=== PATIENT | female | born 1980 | race Caucasian/White ===

== ENCOUNTER 2017-09-12 12:26 | Emergency (ER) | payer BC ==
[2017-09-12] MEDS ORDERED: Sodium Chloride 0.9% 10 ML Syringe FLUSH PRN (12:44)
[2017-09-12] MEDS ORDERED: Aspirin 81 MG Tab.Chew PO ONE (12:44)
--- NOTE | 2017-09-12 14:44 | EDM.PDOC ---
ED HPI GENERAL MEDICAL PROBLEM - General Chief Complaint: Cardiovascular Problem Stated Complaint: CHEST PAIN Time Seen by Provider: 09/12/17 12:37 Source of Information: Reports: Patient History Limitations: Reports: No Limitations - History of Present Illness INITIAL COMMENTS - FREE TEXT/NARRATIVE: The patient presents with chest pain. This started today when she was at work. It felt like her heart was pounding and that it was racing. Her fit bit went off. She also had shortness of breath, and nausea. The pain is better now. This has been a chronic problem. She has been seen here and by her provider Dr Quezada. He has been unable to find a cause at this time. The patient has made some calls and she has an appointment down at the [facility] October 31. She just needs a referral by her doctor. She has no fever, chills, abdominal pain, numbness or weakness. Onset: Sudden Duration: Hour(s): Location: Reports: Chest Quality: Reports: Sharp Severity: Moderate Improves with: Reports: None Worsens with: Reports: None Associated Symptoms: Reports: Chest Pain, Shortness of Breath. Denies: Cough, Fever/Chills, Headaches, Nausea/Vomiting - Related Data Allergies Allergy/AdvReac Type Severity Reaction Status Date / Time No Known Allergies Allergy Verified 09/12/17 12:39 Home Meds: Home Meds Nitroglycerin [Nitrostat] 1 container SL Q5M #1 tab.sl 05/29/16 [Rx] Multivitamin [Multivitamins] 1 tab PO DAILY 05/30/16 [History] [place]-3 Fatty Acids/DHA/EPA [[facility] Dha Cap] 1,000 mg PO DAILY 08/11 [History] Fluticasone/Vilanterol [Breo Ellipta 100-25 MCG Inhalation Kit] 1 inh INH DAILY 09/12/17 [History] Levothyroxine 25 mcg PO DAILY 09/12/17 [History] Past Medical History - Past Health History Medical/Surgical History: Denies Medical/Surgical History Gastrointestinal History: Reports: Other (See Below) Other Gastrointestinal History: constipation 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: - Past Surgical History HEENT Surgical History: Reports: Cataract Surgery Female Surgical History: Reports: Section Social & Family History - Family History Cardiac: Reports: [place] Neurological: Reports: CVA - Tobacco Use Smoking Status *Q: Never Smoker Second Hand Smoke Exposure: No - Caffeine Use Caffeine Use: Reports: Tea - Recreational Drug Use Recreational Drug Use: No ED ROS GENERAL - Review of Systems Review Of Systems: See Below Constitutional: Reports: No Symptoms HEENT: Reports: No Symptoms Respiratory: Reports: Shortness of Breath Cardiovascular: Reports: Chest Pain Endocrine: Reports: No Symptoms GI/Abdominal: Reports: No Symptoms : Reports: No Symptoms Musculoskeletal: Reports: No Symptoms ED EXAM, GENERAL - Physical Exam Exam: See Below Exam Limited By: No Limitations General Appearance: Alert, No Apparent Distress Ears: Normal External Exam Nose: Normal Inspection Head: Atraumatic, Normocephalic Neck: Normal Inspection Respiratory/Chest: No Respiratory Distress, Lungs Clear, Normal Breath Sounds Cardiovascular: Regular Rate, Rhythm, No Edema, No Murmur GI/Abdominal: Soft, Non-Tender, No Organomegaly, No Mass Back Exam: Normal Inspection Extremities: Normal Inspection EKG INTERPRETATION EKG Date: 09/12/17 Time: 12:53 Rhythm: NSR Rate (Beats/Min): 70 Floweree: Normal P-Wave: Present QRS: Normal ST-T: Normal QT: Normal Course - Vital Signs Last Recorded V/S: Last Vital Signs Temp 97.9 F 09/12/17 12:37 Pulse 87 09/12/17 12:37 Resp 20 09/12/17 12:37 BP 159/98 H 09/12/17 12:37 Pulse Ox 100 09/12/17 12:37 - Orders/Labs/Meds Orders: Active Orders 24 hr Category Date Time Status Cardiac Monitoring [RC] . DIRECTED Care 09/12/17 12:44 Active EKG Documentation Completion [RC] STAT Care 09/12/17 12:46 Active Peripheral IV Care [RC] . DIRECTED Care 09/12/17 12:46 Active Chest 1V Frontal [CR] Stat Exams 09/12/17 12:46 Taken Sodium Chloride 0.9% [Saline Flush] Med 09/12/17 12:44 Active 10 ml FLUSH ASDIRECTED PRN Peripheral IV Insertion Adult [OM.PC] Stat Oth 09/12/17 12:44 Ordered Medication Orders Sodium Chloride (Saline Flush) 10 ml FLUSH ASDIRECTED PRN PRN Reason: Keep Vein Open Last Admin: 09/12/17 13:00 Dose: 10 ml Labs: Laboratory Tests 09/12/17 09/12/17 09/12/17 Range/Units 13:00 13:00 13:00 WBC 9.11 (3.98-10.04) K/mm3 RBC 4.66 (3.98-5.22) M/mm3 Hgb 14.6 (11.2-15.7) gm/L Hct 42.1 (34.1-44.9) % MCV 90.3 (79.4-94.8) fl MCH 31.3 (25.6-32.2) pg MCHC 34.7 (32.2-35.5) g/dl RDW Std Deviation 38.8 (36.4-46.3) fL Plt Count 292 (182-369) K/mm3 MPV 9.5 (9.4-12.3) fl Neut % (Auto) 45.1 (34.0-71.1) % Lymph % (Auto) 43.4 (19.3-51.7) % [place] % (Auto) 8.9 (4.7-12.5) % Eos % (Auto) 2.1 (0.7-5.8) Baso % (Auto) 0.3 (0.1-1.2) % Neut # (Auto) 4.11 (1.56-6.13) K/mm3 Lymph # (Auto) 3.95 H (1.18-3.74) K/mm3 [place] # (Auto) 0.81 H (0.24-0.36) K/mm3 Eos # (Auto) 0.19 (0.04-0.36) K/mm3 Baso # (Auto) 0.03 (0.01-0.08) K/mm3 D-Dimer, Quantitative 0.37 (0.19-0.50) mg/L Sodium 137 (136-145) mEq/L Potassium 3.7 (3.5-5.1) mEq/L Chloride 102 (98-107) mEq/L Carbon Dioxide 24 (21-32) mEq/L Anion Gap 14.7 (5-15) BUN 19 H (7-18) mg/dL Creatinine 0.9 (0.55-1.02) mg/dL Est Cr Clr Drug Dosing 72.47 mL/min Estimated GFR (MDRD) > 60 (>60) mL/min BUN/Creatinine Ratio 21.1 H (14-18) Glucose 98 (74-106) mg/dL Calcium 9.8 (8.5-10.1) mg/dL Total Bilirubin 0.5 (0.2-1.0) mg/dL AST 26 (15-37) U/L ALT 47 (14-59) U/L Alkaline Phosphatase 71 (46-116) U/L Troponin I < 0.017 (0.00-0.056) ng/mL Total Protein 7.6 (6.4-8.2) g/dl Albumin 4.1 (3.4-5.0) g/dl Globulin 3.5 gm/dL Albumin/Globulin Ratio 1.2 (1-2) Meds: Medications Generic Name Dose Route Start Last Admin Trade Name Freq PRN Reason Stop Dose Admin Sodium Chloride 10 ml 09/12/17 12:44 09/12/17 13:00 Saline Flush FLUSH 10 ml ASDIRECTED PRN Administration Keep Vein Open Discontinued Medications Generic Name Dose Route Start Last Admin Trade Name Freq PRN Reason Stop Dose Admin Aspirin 324 mg 09/12/17 12:44 09/12/17 13:02 Aspirin PO 09/12/17 12:45 324 mg ONETIME ONE Administration - Re-Assessments/Exams Free Text/Narrative Re-Assessment/Exam: 09/12/17 14:45 I ordered an IV saline lock, aspirin, EKG, CXR and labs. Her EKG shows a NSR with no acute changes. Her CXR looks good. Her CBC and CMP look good. Her troponin and D-dimer are negative. I will have her stop drinking tea until her appointment. She only drinks 1 to 2 cups per day. Departure - Departure Time of Disposition: 14:50 Disposition: Home, Self-Care 01 Condition: Good Clinical Impression: Palpitations, Atypical chest pain Referrals: Jonathon Mary MD [Primary Care Provider] - Additional Instructions: Keep track of when the chest pain occurs and what you are doing at the times. Try to avoid any stimulants like tea, coffee and soda. Please return if you are worse. - My Orders Last 24 Hours: My Active Orders 09/12/17 12:44 Cardiac Monitoring [RC] . DIRECTED Sodium Chloride 0.9% [Saline Flush] 10 ml FLUSH ASDIRECTED PRN Peripheral IV Insertion Adult [OM.PC] Stat 09/12/17 12:46 EKG Documentation Completion [RC] STAT Peripheral IV Care [RC] . DIRECTED Chest 1V Frontal [CR] Stat - Assessment/Plan Last 24 Hours: My Active Orders 09/12/17 12:44 Cardiac Monitoring [RC] . DIRECTED Sodium Chloride 0.9% [Saline Flush] 10 ml FLUSH ASDIRECTED PRN Peripheral IV Insertion Adult [OM.PC] Stat 09/12/17 12:46 EKG Documentation Completion [RC] STAT Peripheral IV Care [RC] . DIRECTED Chest 1V Frontal [CR] Stat
--- NOTE | 2017-09-12 14:49 | CR ---
Chest: Portable view of the chest was obtained. Comparison: Prior chest x-ray of 05/29/16. Heart size and mediastinum are normal. Lungs are clear. Bony structures are grossly intact. Impression: 1. Nothing acute is seen on portable chest x-ray. Diagnostic code #1
[2017-09-12 15:15] VITALS: BP 127/86
== END 2017-09-12 15:10 | disposition home or self-care (01) ==
LOC: JD.ED 12:26
DX: R07.89 Other chest pain (principal); R00.2 Palpitations
CPT/HCPCS: 36415; 71045; 80053; 84484; 85025; 85379; 93005; 99285; A9270; J7050; 93010; 99284-25

== ENCOUNTER → 2020-04-02 | Day surgery (SDC) | payer BC ==
[~2020-04-02] MED LIST: Albuterol 6.7 GM Inhaler INH ONE; Dexamethasone 4 MG/ML 5 ML MDV ONE; HYDROmorphone 0.5 MG/0.5 ML Syringe IVPUSH PRN; Ketorolac 30 MG/ML SDV ONE; Lidocaine 1% 4 ML ONE; Lidocaine 1%/Sod Bicarbonate in NS 8.4% 1 ML Syringe IDERM PRN; Morphine 10 MG/ML SDV ONE; Ondansetron 4 MG/2 ML SDV IVPUSH PRN; Ondansetron 4 MG/2 ML SDV ONE; Propofol 200 MG/20 ML SDV ONE; Rocuronium 50 MG/5 ML Vial ONE; Sodium Chloride 0.9% 10 ML Syringe FLUSH PRN; ceFAZolin 1 GM Vial ONE; fentaNYL 100 MCG/2 ML SDV IVPUSH PRN; fentaNYL 100 MCG/2 ML SDV ONE
[2020-04-02] MEDS: Lactated Ringers 1,000 ML IV SCH ×2 (09:05→11:34)
--- NOTE | 2020-04-02 12:17 | PCM.PREANE ---
Preanesthetic Assessment - Procedure Proposed Procedure: [facility] - Anesthesia/Transfusion/Family Hx Anesthesia History: Prior Anesthesia Without Reaction Transfusion History: No Prior Transfusion(s) Additional History: No previous difficulties with anesthesia or with intubation per patient - Review of Systems General: No Symptoms Pulmonary: No Symptoms Cardiovascular: No Symptoms Gastrointestinal: No Symptoms Neurological: No Symptoms Other: Reports: None - Physical Assessment NPO Status Date: 04/02/20 (greater than 8 hours) Vital Signs: Last Vital Signs Temp 36.7 C 04/02/20 09:00 Pulse 68 04/02/20 09:00 Resp 16 04/02/20 09:00 BP 128/85 04/02/20 09:00 Pulse Ox 96 04/02/20 09:00 Height: 5 ft 4 in Weight: 95.254 kg ASA Class: 2 Mental Status: Alert & Oriented x3 Airway Class: Mallampati = 3 Dentition: Reports: Normal Dentition Thyro-Mental Finger Breadths: 3 Mouth Opening Finger Breadths: 3 ROM/Head Extension: Full Lungs: Clear to Auscultation, Normal Respiratory Effort Cardiovascular: Regular Rate, Regular Rhythm - Lab Values: Laboratory Last Values Urine HCG, Qual Negative (NEGATIVE) 04/02/20 08:50 Blood Type O NEGATIVE 04/02/20 09:15 Gel Antibody Screen Negative 04/02/20 09:15 - Allergies Allergies/Adverse Reactions: Allergies Allergy/AdvReac Type Severity Reaction Status Date / Time No Known Allergies Allergy Verified 04/02/20 09:47 - Anesthesia Plan Pre-Op Medication Ordered: None - Acknowledgements Anesthesia Type Planned: General Anesthesia Pt an Appropriate Candidate for the Planned Anesthesia: Yes Alternatives and Risks of Anesthesia Discussed w Pt/Guardian: Yes Pt/Guardian Understands and Agrees with Anesthesia Plan: Yes PreAnesthesia Questionnaire - Past Health History Medical/Surgical History: Denies Medical/Surgical History HEENT History: Reports: Impaired Vision Cardiovascular History: Reports: None Respiratory History: Reports: Asthma Gastrointestinal History: Reports: None, Other (See Below) Other Gastrointestinal History: constipation Genitourinary History: Reports: None 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: , 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 (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 Below) Other OB/BYN History: abnormal uterine and vaginal bleeding Musculoskeletal History: Reports: None Neurological History: Reports: None Psychiatric History: Reports: Anxiety Endocrine/Metabolic History: Reports: Hypothyroidism Hematologic History: Reports: None Immunologic History: Reports: None Oncologic (Cancer) History: Reports: None Dermatologic History: Reports: None - Infectious Disease History Infectious Disease History: Reports: None - Past Surgical History Head Surgeries/Procedures: Reports: None HEENT Surgical History: Reports: Cataract Surgery Cardiovascular Surgical History: Reports: None Respiratory Surgical History: Reports: None GI Surgical History: Reports: Colonoscopy, EGD Female Surgical History: Reports: Section Endocrine Surgical History: Reports: None Neurological Surgical History: Reports: None Musculoskeletal Surgical History: Reports: None Dermatological Surgical History: Reports: None - SUBSTANCE USE Tobacco Use Status *Q: Never Tobacco User Recreational Drug Use History: No - HOME MEDS Home Medications: Home Meds Sennosides [Senna] 8.6 mg PO DAILY PRN 04/01/20 [History] - CURRENT (IN HOUSE) MEDS Current Meds: Current Medications Lactated Ringer's (Ringers, Lactated) 1,000 mls @ 125 mls/hr IV ASDIRECTED RICHARDSON Stop: 04/02/20 23:00 Last Admin: 04/02/20 11:34 Dose: 125 mls/hr Documented by: Lidocaine/Sodium Bicarbonate (Buffered Lidocaine 1% In Ns 8.4%) 0.25 ml IDERM ONETIME PRN PRN Reason: Prior to IV Start Stop: 04/02/20 18:00 Last Admin: 04/02/20 09:05 Dose: 0.25 ml Documented by: Sodium Chloride (Saline Flush) 10 ml FLUSH ASDIRECTED PRN PRN Reason: Keep Vein Open Stop: 04/02/20 18:00 Discontinued Medications Albuterol (Proventil Hfa) Confirm Administered Dose 6.7 gm INH .STK-MED ONE Stop: 04/02/20 12:09 Bupivacaine HCl (Marcaine 0.5%) Confirm Administered Dose 30 ml .ROUTE .STK-MED ONE Stop: 04/02/20 08:50 Dexamethasone (Dexamethasone) Confirm Administered Dose 20 mg .ROUTE .STK-MED ONE Stop: 04/02/20 09:19 Fentanyl (Sublimaze) Confirm Administered Dose 100 mcg .ROUTE .STK-MED ONE Stop: 04/02/20 09:20 Lidocaine HCl (Xylocaine-Mpf 1%) Confirm Administered Dose 4 mls @ as directed .ROUTE .STK-MED ONE Stop: 04/02/20 09:19 Ketorolac Tromethamine (Toradol) Confirm Administered Dose 30 mg .ROUTE .STK-MED ONE Stop: 04/02/20 09:19 Lidocaine/Epinephrine (Xylocaine 1% With Epinephrine 1:100,000) Confirm Administered Dose 20 ml .ROUTE .STK-MED ONE Stop: 04/02/20 08:50 Ondansetron HCl (Zofran) Confirm Administered Dose 4 mg .ROUTE .STK-MED ONE Stop: 04/02/20 09:19 Propofol (Diprivan 20 Ml) Confirm Administered Dose 400 mg .ROUTE .STK-MED ONE Stop: 04/02/20 09:19 Rocuronium [place] (Zemuron) Confirm Administered Dose 50 mg .ROUTE .STK-MED ONE Stop: 04/02/20 09:19 Sodium Chloride (Normal Saline) Confirm Administered Dose 50 ml .ROUTE .STK-MED ONE Stop: 04/02/20 08:50
[2020-04-02] MEDS: Bupivacaine 0.5% 30 ML SDV ONE ×2 (12:21→12:33)
[2020-04-02] MEDS: Lidocaine 1% with EPINEPHrine 1:100,000 20 ML MDV ONE ×2 (12:34→12:47)
[2020-04-02] MEDS: Sodium Chloride 0.9% 50 ML SDV ONE ×2 (12:34→12:47)
--- NOTE | 2020-04-02 14:45 | PCM.OPNOTE ---
- General Post-Op/Procedure Note Date of Surgery/Procedure: 04/02/20 Operative Procedure(s): Laparoscopic assisted vaginal hysterectomy with bilateral salpingectomy. Findings: Grossly normal-appearing uterus and bilateral ovaries. Normal-appearing distal segments of the bilateral fallopian tubes with surgically absent midportion of the fallopian tubes bilaterally. Grossly normal-appearing appendix, intestines and upper abdomen on visualization. Pre Op Diagnosis: Abnormal uterine bleeding Post-Op Diagnosis: Same Anesthesia Technique: General ET Tube Primary Surgeon: Chino Saravia Anesthesia Provider: oRger Wadsworth Car Changer: Richmond Tovar Car Changer: Tiffany Garcia ([place] student) Reason Car Changer Was Necessary: Patient safety and reduction of morbidity and mortality Role of Car Changer: Retraction for visualization and use of laparoscopic instruments for portions of the surgery. Pathology: Uterus, cervix and bilateral fallopian tube segments Fluid Replacement, Intraop: 1,900 Output, Urine Amount: 75 EBL in mLs: 75 Complications: None Condition: Good Free Text/Narrative:: Intake & Output 04/01/20 04/02/20 04/02/20 22:59 06:59 14:59 Output Total 75 Balance -75 The patient was seen in the preoperative holding area and risks, benefits, indications, and alternatives of the procedure were reviewed with the patient and she desired to proceed with a laparoscopic assisted vaginal hysterectomy, bilateral salpingectomy, possible unilateral or bilateral salpingo-oophorectomy and possible total abdominal hysterectomy. Consents were reviewed. The patient was taken back to the OR and given general anesthesia with an endotracheal tube which was placed without difficulty. She was placed in dorsal lithotomy position using Yellofin stirrups. She was prepped and draped in normal sterile fashion. A Oropeza catheter was placed without difficulty. Attention was then turned to her umbilicus and it was injected with 0.5% Marcaine and a 5 mm stab incision was made with a scalpel and a Veress needle was then inserted through the incision. The gas was turned on, with an opening pressure of 7 mmHg. Pneumoperitoneum was continued until 15 mmHg pressure. A 5 mm trocar was then inserted under direct visualization through the incision without difficulty. Attention was then turned to the patient's right lower quadrant where an avascular space approximately usp between the ASIS and the umbilicus was identified. Local anesthetic was injected and a 5 mm incision was made with a scalpel. A 5 mm trocar was then inserted under direct visualization of the laparoscope. Attention was then turned to the left lower quadrant, where again an avascular portion of the abdominal wall was identified approximately usp between the ASIS and the umbilicus. Local anesthetic was injected and a scalpel was used to make a 5 mm incision. A 5 mm trocar was inserted under direct visualization with the laparoscope. Attention was then turned to the pelvis where the uterus was visualized and noted be normal in appearance with normal appearing bilateral fallopian tubes with surgically absent midportion of the fallopian tube from previous bilateral tubal ligation and normal-appearing bilateral ovaries. The atraumatic grasper was then removed from the right lower trocar and a Enseal vessel sealing device was introduced and was used to transect the right fallopian tube segment. The mesosalpinx connecting the right fallopian tube was transected from the ovary and underlying tissue. This was placed in the anterior cul-de-sac for retrieval after the hysterectomy. The right round ligament was then transected using the Enseal vessel sealing device. The utero-ovarian ligament was then transected using the Enseal vessel sealing device. The right side of the uterus and broad ligament were then transected using the Enseal vessel sealing device until the level of the uterovesical peritoneal reflection. This was repeated on the patient's left side. The fallopian tube segment was transected from the mesosalpinx using the Enseal vessel sealing device. This fallopian tube segment was placed in the anterior cul-de-sac for retrieval after the hysterectomy. The utero-ovarian ligament was then transected using Enseal vessel sealing device. The left round ligament was transected using Enseal vessel sealing device and the broad ligament was transected to the level of the uterovesical peritoneal reflection. The pelvis was then inspected for hemostasis at this time and hemostasis was noted. All instruments were removed from the abdomen. Attention was then turned to the patient's perineum where a weighted speculum was placed into the vagina and a [place] retractor was used to visualize the cervix. The cervix was grasped with a double-tooth tenaculum. The cervical reflection point was then injected circumferentially with 0.25% lidocaine with epinephrine. The cervix was then circumferentially incised with a scalpel. The bladder was then dissected off the pubovesical cervical fascia anteriorly with Metzenbaum scissors. The same procedure was performed posteriorly and the posterior cul-de-sac was entered sharply without difficulty using Metzenbaum scissors. At this point, an Enseal vessel sealing device was placed over the uterosacral ligaments on the patient's left side. These were cauterized and ligated with the device. This was repeated on the patient's right side. Hemostasis was assured. The cardinal ligaments were then clamped on both sides using the Enseal vessel sealing device, cauterized and transected with the device. The uterine artery on the patient's right side side and the remainder of the broad ligament were then serially clamped with the Enseal vessel sealing device, cauterized and transected with the device. The uterine fundus was grasped with a single-tooth tenaculum and the entirety of the left broad lig ament had been transected. Evaluation was performed of the anterior portion of the peritoneum and there was a small segment still connecting the right broad ligament and anterior peritoneum to the uterus. This was transected using Enseal vessel sealing device. Excellent hemostasis was noted. The cervix and uterus was able to be delivered at this time. The posterior vaginal cuff was closed with running locked sutures of 0 Monocryl. Attempt was then made to locate the fallopian tube segments that have been placed in the anterior cul-de-sac but they were unable to be located. Decision was made to insufflate the abdomen with gas prior to closure of the vaginal cuff. With use of the laparoscopic instruments were able to locate to the left fallopian tube segment and the cyst that was present on this fallopian tube segment was drained and the fallopian tube segment was able to be removed through the trocar. The right fallopian tube segment was not able to be located within the abdomen and on inspection of the under buttocks drape was located in the bag that was therefore catching fluid. These were sent for pathology with the uterus and cervix. The vaginal cuff was then closed in a horizontal fashion using running locked sutures with 0 Monocryl suture. All instruments were removed from the vagina. Attention was then turned to the abdomen where a laparoscope was inserted and was used to check for hemostasis. Hemostasis was noted at this time. The case was complete at this time. The gas was then evacuated from the peritoneum and trocars removed. These were closed using 4-0 Monocryl suture and Dermabond. The patient was awoken from general anesthesia and taken to the PACU for recovery in stable condition. She will be discharged to home once she is able to meet all postoperative milestones including tolerating small amount of oral intake and liquids, ambulate without difficulty, her pain controlled with oral medications and able to void without difficulty. She will follow-up in the clinic in 2 weeks or earlier as needed. Sponge, lap, needle, and instrument counts were correct x 2. Review of images from the case IMG 001: Uterine fundus with grossly normal-appearing uterus. Bilateral fallopian tube segments with interrupted portions from previous bilateral tubal ligation noted. IMG 002: Right ovary and fallopian tube segment with surgically absent portion of the fallopian tube. IMG 003: Left ovary and distal fallopian tube segment grossly normal in appearance. Portion of the fallopian tube surgically absent from previous tubal ligation procedure. IMG 004: Excision of the left utero ovarian ligament with normal-appearing left ovary. Grossly normal-appearing uterine fundus. IMG 005: Grossly normal-appearing appendix and visualized portions of the intestines. Chino Saravia MD 2:43 PM 04/02/2020
[2020-04-02 15:34] VITALS: BP 112/70
--- NOTE | 2020-04-02 16:01 | PCM48HPAN ---
Post Anesthesia Note - EVALUATION WITHIN 48HRS OF ANESTHETIC Vital Signs: Last Vital Signs Temp 36.7 C 04/02/20 15:15 Pulse 68 04/02/20 09:00 Resp 15 04/02/20 15:15 BP 112/70 04/02/20 15:15 Pulse Ox 97 04/02/20 15:15
[2020-04-02 16:29] VITALS: PULSE 94
== END | disposition home or self-care (01) ==
LOC: JD.SDS 09:01
PROVIDERS: ATTEND Obstetrics & Gynecology
DX: N84.0 Polyp of corpus uteri (principal); N80.0 Endometriosis of uterus; N73.6 Female pelvic peritoneal adhesions (postinfective); N72 Inflammatory disease of cervix uteri; N88.8 Other specified noninflammatory disorders of cervix uteri; F41.9 Anxiety disorder, unspecified; E03.9 Hypothyroidism, unspecified; J45.909 Unspecified asthma, uncomplicated
CPT/HCPCS: 36415; 58552; 81025; 86850; 86900; 86901; A9270; J0690; J1100; J1885; J2001; J2270; J2405; J2704; J2710; J3010; J3490; J7120; 00944

== ENCOUNTER 2020-09-13 08:00 | Emergency (ER) | payer BC ==
[2020-09-13] MEDS ORDERED: Ondansetron 4 MG/2 ML SDV ONE (10:01)
[2020-09-13] MEDS ORDERED: Sodium Chloride 0.9% 10 ML Syringe FLUSH PRN ×2 (10:20→11:20)
[2020-09-13] MEDS ORDERED: HYDROmorphone 0.5 MG/0.5 ML Syringe IVPUSH ONE (10:22)
[2020-09-13] MEDS ORDERED: Sodium Chloride 0.9% 1,000 ML IV SCH (10:30)
[2020-09-13] MEDS ORDERED: Ondansetron 4 MG/2 ML SDV IVPUSH ONE (10:33)
[2020-09-13] MEDS ORDERED: Diatrizoate Meglumine/Diatrizoate Sodium 37% 120 ML Bottle PO ONE (11:20)
[2020-09-13] MEDS ORDERED: Iopamidol 612 MG/ML 50 ML SDV IVPUSH ONE (11:20)
[2020-09-13] MEDS ORDERED: Iopamidol 612 MG/ML 100 ML Bottle IVPUSH ONE (11:20)
--- NOTE | 2020-09-13 11:49 | EDM.PDOC ---
ED HPI GENERAL MEDICAL PROBLEM - General Chief Complaint: Gastrointestinal Problem Stated Complaint: VOMITING AND UNABLE TO KEEP ANYTHING DOWN Time Seen by Provider: 09/13/20 10:20 Source of Information: Reports: Patient History Limitations: Reports: No Limitations - History of Present Illness INITIAL COMMENTS - FREE TEXT/NARRATIVE: The patient presents with abdominal pain, nausea and vomiting. She was diagnosed with COVID 19 on the 6. She still has a cough and shortness of breath at times. She feels she may be constipated. She has not had a bowel movement for a few days. She has not been able to eat or drink munch because of the nausea and vomiting. She still has her appendix and gallbladder. She was taken off of quarantine yesterday. She has no fever or chills. She has no chest pain. The pain in her abdomen is in the upper abdomen. Onset: Gradual Duration: Day(s): Location: Reports: Abdomen Quality: Reports: Sharp Severity: Moderate Improves with: Reports: None Worsens with: Reports: None Associated Symptoms: Reports: Cough, Nausea/Vomiting. Denies: Chest Pain, Fever/Chills Abdomen Pain Score (Numeric/FACES): 7 - Related Data Allergies Allergy/AdvReac Type Severity Reaction Status Date / Time No Known Allergies Allergy Verified 09/13/20 10:18 Home Meds: Home Meds Sennosides [Senna] 8.6 mg PO DAILY PRN 04/01/20 [History] Ibuprofen 600 mg PO Q6H PRN #60 tablet 04/02/20 [Rx] Metoclopramide HCl [Reglan] 10 mg PO Q6H PRN #30 tablet 09/13/20 [Rx] dexAMETHasone [Dexamethasone] 6 mg PO Q6H #8 tab 09/13/20 [Rx] Past Medical History - Past Health History Medical/Surgical History: Denies Medical/Surgical History HEENT History: Reports: Cataract, Impaired Vision Cardiovascular History: Reports: None Respiratory History: Reports: Asthma Gastrointestinal History: Reports: Chronic Constipation Other Gastrointestinal History: constipation Genitourinary History: Reports: UTI, Recurrent [employer] History: Reports: , Other (See Below) Other [employer]ICE History: abnormal uterine and vaginal bleeding Musculoskeletal History: Reports: None Neurological History: Reports: None Psychiatric History: Reports: Anxiety Endocrine/Metabolic History: Reports: Hypothyroidism Hematologic History: Reports: None Immunologic History: Reports: None Oncologic (Cancer) History: Reports: None Dermatologic History: Reports: None - Infectious Disease History Infectious Disease History: Reports: Chicken Pox, Novel Coronavirus - Past Surgical History HEENT Surgical History: Reports: Cataract Surgery GI Surgical History: Reports: Colonoscopy, EGD Female Surgical History: Reports: Section, Hysterectomy Social & Family History - Family History Cardiac: Reports: [place] Neurological: Reports: CVA - Tobacco Use Tobacco Use Status *Q: Never Tobacco User Second Hand Smoke Exposure: No - Caffeine Use Caffeine Use: Reports: Soda, Tea - Recreational Drug Use Recreational Drug Use: No ED ROS GENERAL - Review of Systems Review Of Systems: See Below Constitutional: Reports: No Symptoms HEENT: Reports: No Symptoms Respiratory: Reports: No Symptoms Cardiovascular: Reports: No Symptoms Endocrine: Reports: No Symptoms GI/Abdominal: Reports: Abdominal Pain, Constipation, Nausea, Vomiting : Reports: No Symptoms Musculoskeletal: Reports: No Symptoms ED EXAM, GI/ABD - Physical Exam Exam: See Below Exam Limited By: No Limitations General Appearance: Alert, No Apparent Distress Ears: Normal External Exam Nose: Normal Inspection Head: Atraumatic, Normocephalic Neck: Normal Inspection Respiratory/Chest: No Respiratory Distress, Lungs Clear, Normal Breath Sounds Cardiovascular: Regular Rate, Rhythm, No Edema, No Murmur GI/Abdominal Exam: Soft, No Organomegaly, No Mass, Tender (Moderate tenderness to the upper abdomen) Course - Vital Signs Last Recorded V/S: Last Vital Signs Temp 98.0 F 09/13/20 10:05 Pulse 70 09/13/20 10:05 Resp 18 09/13/20 10:05 BP 135/88 09/13/20 10:05 Pulse Ox 95 09/13/20 10:05 - Orders/Labs/Meds Orders: Active Orders 24 hr Category Date Time Status Cardiac Monitoring [RC] . DIRECTED Care 09/13/20 10:20 Active Peripheral IV Care [RC] . DIRECTED Care 09/13/20 10:21 Active UA W/MICROSCOPIC [URIN] Stat Lab 09/13/20 10:20 Ordered Sodium Chloride 0.9% [Normal Saline] 1,000 ml Med 09/13/20 10:30 Active IV .BOLUS Sodium Chloride 0.9% [Saline Flush] Med 09/13/20 10:20 Active 10 ml FLUSH ASDIRECTED PRN Sodium Chloride 0.9% [Saline Flush] Med 09/13/20 11:20 Active 10 ml FLUSH ONETIME PRN ED Antiemetic Medication Reflex [OM.PC] Stat Oth 09/13/20 10:21 Ordered Peripheral IV Insertion Adult [OM.PC] Stat Oth 09/13/20 10:20 Ordered Medication Orders Sodium Chloride (Normal Saline) 1,000 mls @ 1,000 mls/hr IV .BOLUS RICHARDSON Last Admin: 09/13/20 10:20 Dose: 1,000 mls/hr Documented by: CAS Sodium Chloride (Sodium Chloride 0.9% 10 Ml Syringe) 10 ml FLUSH ASDIRECTED PRN PRN Reason: Keep Vein Open Last Admin: 09/13/20 10:11 Dose: 10 ml Documented by: CAS Sodium Chloride (Sodium Chloride 0.9% 10 Ml Syringe) 10 ml FLUSH ONETIME PRN PRN Reason: IV FLUSH Last Admin: 09/13/20 12:02 Dose: 10 ml Documented by: ISABELLA Labs: Laboratory Tests 09/13/20 09/13/20 Range/Units 10:10 10:10 WBC 6.95 (3.98-10.04) K/mm3 RBC 4.68 (3.98-5.22) M/mm3 Hgb 14.2 (11.2-15.7) gm/dl Hct 42.1 (34.1-44.9) % MCV 90.0 (79.4-94.8) fl MCH 30.3 (25.6-32.2) pg MCHC 33.7 (32.2-35.5) g/dl RDW Std Deviation 38.8 (36.4-46.3) fL Plt Count 295 (182-369) K/mm3 MPV 9.6 (9.4-12.3) fl Neut % (Auto) 61.5 (34.0-71.1) % Lymph % (Auto) 27.5 (19.3-51.7) % Beadle % (Auto) 8.8 (4.7-12.5) % Eos % (Auto) 1.2 (0.7-5.8) Baso % (Auto) 0.9 (0.1-1.2) % Neut # (Auto) 4.28 (1.56-6.13) K/mm3 Lymph # (Auto) 1.91 (1.18-3.74) K/mm3 Beadle # (Auto) 0.61 H (0.24-0.36) K/mm3 Eos # (Auto) 0.08 (0.04-0.36) K/mm3 Baso # (Auto) 0.06 (0.01-0.08) K/mm3 Manual Slide Review Normal smear Sodium 141 (136-145) mEq/L Potassium 3.6 (3.5-5.1) mEq/L Chloride 102 (98-107) mEq/L Carbon Dioxide 27 (21-32) mEq/L Anion Gap 15.6 H (5-15) BUN 10 (7-18) mg/dL Creatinine 0.8 (0.55-1.02) mg/dL Est Cr Clr Drug Dosing 79.11 mL/min Estimated GFR (MDRD) > 60 (>60) mL/min BUN/Creatinine Ratio 12.5 L (14-18) Glucose 111 H (74-106) mg/dL Calcium 8.8 (8.5-10.1) mg/dL Total Bilirubin 0.6 (0.2-1.0) mg/dL AST 25 (15-37) U/L ALT 39 (14-59) U/L Alkaline Phosphatase 78 (46-116) U/L C-Reactive Protein 4.3 H* (<1.0) mg/dL Total Protein 7.9 (6.4-8.2) g/dl Albumin 3.7 (3.4-5.0) g/dl Globulin 4.2 gm/dL Albumin/Globulin Ratio 0.9 L (1-2) Lipase 108 (73-393) U/L Meds: Medications Generic Name Dose Route Start Last Admin Trade Name Freq PRN Reason Stop Dose Admin Sodium Chloride 1,000 mls @ 1,000 mls/hr 09/13/20 10:30 09/13/20 10:20 Normal Saline IV 1,000 mls/hr .BOLUS RICHARDSON Administration Sodium Chloride 10 ml 09/13/20 10:20 09/13/20 10:11 Sodium Chloride 0.9% 10 Ml Syringe FLUSH 10 ml ASDIRECTED PRN Administration Keep Vein Open Sodium Chloride 10 ml 09/13/20 11:20 09/13/20 12:02 Sodium Chloride 0.9% 10 Ml Syringe FLUSH 10 ml ONETIME PRN Administration IV FLUSH Discontinued Medications Generic Name Dose Route Start Last Admin Trade Name Freq PRN Reason Stop Dose Admin Diatrizoate Meglum/Diatrizoate Sod 120 ml 09/13/20 11:20 09/13/20 12:02 Diatrizoate Meglumine/Diatrizoate Sodium 37% 120 Ml Bottle PO 09/13/20 11:21 45 ml ONETIME ONE Administration Hydromorphone HCl 0.5 mg 09/13/20 10:22 09/13/20 11:11 Hydromorphone 0.5 Mg/0.5 Ml Syringe IVPUSH 09/13/20 10:23 0.5 mg ONETIME ONE Administration Iopamidol 100 ml 09/13/20 11:20 09/13/20 12:02 Iopamidol 612 Mg/Ml 100 Ml Bottle IVPUSH 09/13/20 11:21 100 ml ONETIME ONE Administration Iopamidol 50 ml 09/13/20 11:20 09/13/20 12:02 Iopamidol 612 Mg/Ml 50 Ml Sdv IVPUSH 09/13/20 11:21 50 ml ONETIME ONE Administration Metoclopramide HCl 10 mg 09/13/20 12:38 Metoclopramide 10 Mg/2 Ml Sdv IVPUSH 09/13/20 12:39 ONETIME ONE Ondansetron HCl Confirm 09/13/20 10:01 09/13/20 10:34 Ondansetron 4 Mg/2 Ml Sdv Administered 09/13/20 10:02 Not Given Dose 4 mg .ROUTE .STK-MED ONE Ondansetron HCl 4 mg 09/13/20 10:33 09/13/20 10:11 Ondansetron 4 Mg/2 Ml Sdv IVPUSH 09/13/20 10:34 4 mg ONETIME ONE Administration - Re-Assessments/Exams Free Text/Narrative Re-Assessment/Exam: 09/13/20 11:50 I ordered an IV NS 1L bolus, zofran 4mg IV, dilaudid 0.5mg IV, labs, UA and a CT of her abdomen and pelvis with IV and oral contrast. 09/13/20 12:36 Her CBC looks good. Her anion gap was elevated at 15.6. Her CRP is elevated at 4.3. Her lipase is normal. Her CT shows parenchymal densities within both lung bases presumably due to change from previous COVID pneumonia. Nothing acute is otherwise seen on CT study of the abdomen and pelvis. She is still a little nauseated. I ordered reglan 10mg IV. I will discharge her home with some reglan. Departure - Departure Time of Disposition: 13:15 Disposition: Home, Self-Care 01 Condition: Good Clinical Impression: Pneumonia due to COVID-19 virus Abdominal pain Qualifiers: Abdominal location: upper abdomen, unspecified Qualified Code(s): R10.10 - Upper abdominal pain, unspecified Nausea & vomiting Qualifiers: Vomiting type: unspecified Vomiting Intractability: non-intractable Qualified Code(s): R11.2 - Nausea with vomiting, unspecified - Discharge Information *PRESCRIPTION DRUG MONITORING PROGRAM REVIEWED*: Not Applicable *COPY OF PRESCRIPTION DRUG MONITORING REPORT IN PATIENT YULY: Not Applicable Prescriptions: dexAMETHasone [Dexamethasone] 6 mg PO Q6H #8 tab Metoclopramide HCl [Reglan] 10 mg PO Q6H PRN #30 tablet PRN Reason: Nausea/Vomiting Referrals: PCP,None [Primary Care Provider] - Zelda Goncalves MD [Physician] - 1 Week Forms: ED Department Discharge Additional Instructions: Drink plenty of fluids. Take the reglan every 6 hours as needed for nausea and vomiting. Take the dexamethasone 6mg or 1 1/2 tablets daily until gone. Follow up with your doctor. Please return if you are worse. Sepsis Event Note (ED) - Evaluation Sepsis Screening Result: No Definite Risk - Focused Exam Vital Signs: Vital Signs Temp Pulse Resp BP Pulse Ox 09/13/20 10:05 98.0 F 70 18 135/88 95 - My Orders Last 24 Hours: My Active Orders 09/13/20 10:20 Cardiac Monitoring [RC] . DIRECTED UA W/MICROSCOPIC [URIN] Stat Sodium Chloride 0.9% [Saline Flush] 10 ml FLUSH ASDIRECTED PRN Peripheral IV Insertion Adult [OM.PC] Stat 09/13/20 10:21 Peripheral IV Care [RC] . DIRECTED ED Antiemetic Medication Reflex [OM.PC] Stat 09/13/20 10:30 Sodium Chloride 0.9% [Normal Saline] 1,000 ml IV .BOLUS 09/13/20 11:20 Sodium Chloride 0.9% [Saline Flush] 10 ml FLUSH ONETIME PRN - Assessment/Plan Last 24 Hours: My Active Orders 09/13/20 10:20 Cardiac Monitoring [RC] . DIRECTED UA W/MICROSCOPIC [URIN] Stat Sodium Chloride 0.9% [Saline Flush] 10 ml FLUSH ASDIRECTED PRN Peripheral IV Insertion Adult [OM.PC] Stat 09/13/20 10:21 Peripheral IV Care [RC] . DIRECTED ED Antiemetic Medication Reflex [OM.PC] Stat 09/13/20 10:30 Sodium Chloride 0.9% [Normal Saline] 1,000 ml IV .BOLUS 09/13/20 11:20 Sodium Chloride 0.9% [Saline Flush] 10 ml FLUSH ONETIME PRN
--- NOTE | 2020-09-13 12:26 | CT ---
CT abdomen and pelvis Technique: Multiple axial sections were obtained from above the dome of the diaphragm inferiorly through the pubic symphysis. Intravenous and oral contrast was utilized. Delayed images were obtained through the bladder. Reconstructed coronal and sagittal images were obtained. Comparison: Prior CT abdomen and pelvis study of 08/29/12. Chest x-ray of 09/12/[address] of 05/30/16 are available. Findings: Patchy areas of increased density are noted within both lung bases presumably representing change from previous COVID pneumonia. Liver contains no focal parenchymal abnormality. Spleen size is normal. Adrenal glands show no nodule. Gallbladder shows no calcified gallstones. Pancreas shows no abnormality. Kidneys show symmetric contrast enhancement with no hydronephrosis or mass. Abdominal aorta shows no aneurysm. Small fat-containing umbilical hernia is noted. No mesenteric abnormalities are seen. Appendix is seen which is normal. No pelvic mass or adenopathy is appreciated. Delayed images show contrast within the distal ureters and bladder. Bone window settings were reviewed which show no acute osseous abnormality. Impression: 1. Parenchymal densities within both lung bases presumably due to change from previous COVID pneumonia. 2. Nothing acute is otherwise seen on CT study of the abdomen and pelvis. Diagnostic code #3
[2020-09-13] MEDS ORDERED: Metoclopramide 10 MG/2 ML SDV IVPUSH ONE (12:38)
[2020-09-13 13:24] VITALS: BP 121/72; PULSE 68
== END 2020-09-13 13:55 | disposition home or self-care (01) ==
LOC: JD.ED 08:00
DX: U07.1 COVID-19 (principal); J12.82 Pneumonia due to coronavirus disease 2019; R11.2 Nausea with vomiting, unspecified; J45.909 Unspecified asthma, uncomplicated
CPT/HCPCS: 36415; 74177; 80053; 81001; 83690; 85025; 86140; 96374; 96375; 99285; J1170; J2405; J2765; J7030; Q9963; Q9967; 99284